=== PATIENT | male | born 1980 | race Caucasian/White ===

== ENCOUNTER 2017-09-23 18:24 | Emergency (ER) | payer MEDICARE, MEDICAID ==
[~2017-09-23] VITALS: Ht 193 cm; Wt 90.7 kg
[2017-09-23 18:36] VITALS: BP 133/81
[2017-09-23] MEDS ORDERED: LORazepam Inj 2mg/ml 1ml IM ONE (19:15)
[2017-09-23] MEDS ORDERED: LORazepam 1mg tab ORAL ONE (19:30)
[2017-09-23 22:28] LABS: BASOPHILS % (AUTO) 1.1 % (0.0-2.0); EOSINOPHILS % (AUTO) 0.5 % (0.0-3.0); HEMATOCRIT 44.1 % (42.0-52.0); HEMOGLOBIN 15.6 G/DL (14.2-18.0); LYMPHOCYTES % (AUTO) 31.6 % (20.0-45.0); MEAN CORPUSCULAR VOLUME 91 FL (80-99); MONOCYTES % (AUTO) 8.2 % (1.0-10.0); NEUTROPHILS % (AUTO) 58.6 % (45.0-75.0); PLATELET COUNT 250 K/UL (150-450); RED BLOOD COUNT 4.82 M/UL (4.70-6.10); RED CELL DISTRIBUTION WIDTH 10.5 % (11.6-14.8); WHITE BLOOD COUNT 6.8 K/UL (4.8-10.8)
[2017-09-23 22:30] VITALS: BP 110/70
[2017-09-23 22:34] LABS: ANION GAP 6 mmol/L (5-15); BLOOD UREA NITROGEN 14 mg/dL (7-18); CARBON DIOXIDE 31 MMOL/L (21-32); CHLORIDE 103 MMOL/L (98-107); CREATININE 1.2 MG/DL (0.55-1.30); POTASSIUM 4.3 MMOL/L (3.5-5.1); SODIUM 140 MMOL/L (136-145)
[2017-09-23 22:39] LABS: ALANINE AMINOTRANSFERASE 32 U/L (12-78); ALBUMIN 4.1 G/DL (3.4-5.0); ALBUMIN/GLOBULIN RATIO 1.3 (1.0-2.7); ALKALINE PHOSPHATASE 60 U/L (46-116); ASPARTATE AMINO TRANSFERASE 21 U/L (15-37); BILIRUBIN,TOTAL 0.8 MG/DL (0.2-1.0)
--- NOTE | 2017-09-23 22:53 | Emergency Room Report ---
History of Present Illness General Chief Complaint: Suicidal Source: Patient (Dawood Gallardo) Present Illness HPI Patient 37-year-old male who presents after increased suicidal thoughts. Patient reports having prior history of systems consistent affective disorder. He states that he had been having increased auditory hallucinations. Patient states he has not been taking his Latuda. He reports having previously taken Zyprexa but does not want to continue take that medication due to weight gain. Patient had reported suicidal thoughts. (Dawood Gallardo) Allergies: Coded Allergies: HALOPERIDOL (Verified Allergy, Unknown, 09/23/17) Patient History Past Medical History: see triage record Reviewed Nursing Documentation: PMH: Agreed; PSxH: Agreed (SamiDawood) Nursing Documentation-PMH Past Medical History: No History, Except For History Of Psychiatric Problem: Yes - anxiety, schizoaffective and bipolar (Dawood Gallardo) Review of Systems All Other Systems: negative except mentioned in HPI (Dawood Gallardo) Physical Exam Vital Signs Date Time Temp Pulse Resp B/P (MAP) Pulse Ox O2 Delivery O2 Flow Rate FiO2 09/23/17 18:26 97.8 104 18 133/81 98 Room Air 97.9 Sp02 EP Interpretation: reviewed, normal General Appearance: alert/responsive, no apparent distress, GCS 15, non-toxic Head: atraumatic Eyes: PERRL, lids + conjunctiva normal ENT: hearing intact, no angioedema Neck: supple/symm/no masses, no meningismus Respiratory: effort normal, no wheezing, chest symmetrical Cardiovascular: regular rate, rhythm, no edema Cardiovascular #2: 2+ carotid (R), 2+ carotid (L), 2+ dorsalis pedis (R), 2+ dorsalis pedis (L) Gastrointestinal: non-tender, no mass, non-distended, no rebound/guarding, normal bowel sounds Musculoskeletal: gait & station normal, strength & tone normal, normal ROM, non -tender Neurologic: oriented x3, sensory intact, normal speech Psychiatric: normal inspection, judgment & insight normal, memory normal Skin: no rash, well hydrated Lymphatic: normal inspection (Dawodo Gallardo) Medical Decision Making Diagnostic Impression: Primary Impression: Schizoaffective disorder Qualified Codes: F25.9 - Schizoaffective disorder, unspecified Additional Impression: Suicidal ideation ER Course Patient presented for suicidal thoughts. Differential diagnoses include substance abuse, psychosis, bipolar disorder, depression, malingering. Because of complexity of patient's case laboratory testing and imaging studies were ordered. Patient was noted to have some anxiety was given oral Ativan. The patient was also given Zyprexa. Laboratory testing was ordered. Dr. Montanez was contacted for psychiatric consult. (Dawood Gallardo) ER Course Patient signed out to me. He presents with chief complaint of suicidal mediation with no particular plan. He slept through the night without any problem. He has been cooperative. Still complaint of suicidal mediation. Was get psychiatric evaluation. He is medically clear. (KHANG WISLON M.D.) Last Vital Signs Date Time Temp Pulse Resp B/P (MAP) Pulse Ox O2 Delivery O2 Flow Rate FiO2 09/23/17 18:36 97.9 101 18 133/81 98 Room Air 97.9 Status: improved (Dawood Gallardo) Status: unchanged (KHANG WILSON M.D.) Disposition: XFER TO PSYCH HOSP/UNIT Condition: Stable Referrals: NOT CHOSEN IPA/,REFERRING (PCP) Dawood Gallardo Sep 23, 2017 22:53 KHANG WILSON M.D. Sep 24, 2017 05:30
[2017-09-24 03:45] VITALS: BP 101/65
[2017-09-24] MEDS ORDERED: ALPRAZOLAM0.25 MG ORAL (07:00)
[2017-09-24] MEDS ORDERED: LATUDA60 MG PO (07:00)
[2017-09-24 07:20] VITALS: BP 116/72
[2017-09-24] MEDS ORDERED: LORazepam 1mg tab ORAL ONE (10:00)
[2017-09-24 11:18] VITALS: BP 117/76
== END 2017-09-24 11:21 ==
LOC: EMR 18:40
DX: F25.9 Schizoaffective disorder, unspecified (principal); R45.851 Suicidal ideations
CPT/HCPCS: 36415; 80053; 80307; 85025; 99285; G0480; 80329